=== PATIENT | male | born 1935 | race Caucasian/White ===

== ENCOUNTER 2024-01-28 07:01 | Inpatient (IN) | payer OTHER ==
[~2024-01-28] VITALS: Ht 170.2 cm; Wt 64.1 kg
[2024-01-28] VITALS (33 sets, daily range): BP systolic 71–127; BP diastolic 45–93
[2024-01-28] MEDS ORDERED: ACETAMINOPHEN 500 MG TAB PO ONE (07:15)
[2024-01-28] MEDS ORDERED: CEFTRIAXONE/SODIUM CHLORIDE 2 GM/100 ML PIGGYBACK IV ONE (07:15)
[2024-01-28] MEDS ORDERED: SODIUM CHLORIDE 0.9% 1,000 ML IV PRN ×3 (07:15→10:00)
[2024-01-28 07:26] LABS: BASOPHILS 0.5 % (0-2); EOSINOPHILS 0.6 % (0-6); HEMATOCRIT 40.1 % (35.0-50.0); HEMOGLOBIN 13.5 g/dL (12.0-18.0); LYMPHOCYTES 6.3 % (24-44); MCH 32.1 (27-36); MCHC 33.7 g/dl (30-36); MCV 95.3 fl (81-99); MONOCYTES 0.7 % (0-12); NEUTROPHILS 91.9 % (39-80); PLATELET COUNT 155 K/uL (140-440); RBC 4.21 M/ul (4.3-5.7); RDW 14.4 (10.5-15.0)
[2024-01-28 07:38] LABS: INR 1.7 (0.80-1.30); PROTIME 19.1 Sec (11.2-14.2)
[2024-01-28 07:42] LABS: ALBUMIN 3.1 g/dL (3.4-5.0); ALBUMIN/GLOBULIN RATIO 0.97 (1.1-2.4); ANION GAP 17.8 (7-21); BILIRUBIN, TOTAL 1.1 ng/dL (0.2-1.0); BUN/CREATININE RATIO 11.53 (6.0-28.6); CALCIUM 8.6 mg/dL (8.5-10.1); CREATININE, SERUM 1.56 mg/dL (0.70-1.30); POTASSIUM 3.8 mmol/L (3.5-5.1); PROTEIN, TOTAL 6.3 g/dL (6.4-8.2)
[2024-01-28 07:48] LABS: LACTIC ACID, BLOOD 3.9 mmol/L (0.4-2.0)
[2024-01-28 08:02] LABS: INFLUENZA B NAA NEGATIVE (NEGATIVE); RESPIRATORY SYNCYTIAL VIR NAA NEGATIVE (NEGATIVE)
[2024-01-28 08:26] LABS: BILIRUBIN, URINE NEGATIVE (negative); BLOOD/HGB, URINE NEGATIVE (Negative); KETONE, URINE NEGATIVE (Negative); LEUK ESTERASE, URINE NEGATIVE (negative); NITRITE, URINE NEGATIVE (negative)
[2024-01-28] MEDS ORDERED: ALBUTEROL/IPRATROPIUM 3 ML NEB INH ONE (08:45)
[2024-01-28] MEDS ORDERED: methylPREDNISolone SOD SUCC 125 MG/2 ML VIAL IV ONE (08:45)
[2024-01-28 09:51] LABS: LACTIC ACID, BLOOD 2.8 mmol/L (0.4-2.0)
[2024-01-28] MEDS ORDERED: SPIRIVA RESPIMAT4 GM INH (10:55)
[2024-01-28] MEDS ORDERED: WIXELA 250-501 EACH INH (10:55)
--- NOTE | 2024-01-28 11:10 | NUR ---
PATIENT ARRIVED TO UNIT VIA STRETCHER. REPORT RECEIVED FROM ED RN. PATIENT ABLE TRANSFER TO THE UNIT BED BY SCOOTING SELF. TOLLERATED WELL. ALERT AND ORIENTED TO PERSON, PLACE, TIME AND LOCATION. POSITIVE PERRLA TO BILATERAL EYES. HEART RATE NOTED TO BE IRREGULAR. LUNGS CTA IN UPPER LOBES LOWER LOBES DIMINISHED. BOWEL TONES ACTIVE X 4 QUADRANTS. ABD SOFT NON TENDER. DENIES ANY PAIN OR DISCOMFORT. NOTED BRUISE TO RIGHT PECTORAL AREA ON CHEST AND RIGHT LATERAL SIDE RIB AREA. MD IN ROOM TO ASSESS PATIENT.
[2024-01-28] MEDS ORDERED: ACETAMINOPHEN 325 MG TAB PO PRN (11:15)
[2024-01-28] MEDS ORDERED: ondansetron HCL 4 MG/2 ML VIAL IV PRN (11:15)
--- NOTE | 2024-01-28 11:45 | NUR ---
NOTED BP'S LOW, MD IN ROOM WITH PATIENT. MD GAVE VERBAL ORDER FOR 1L BOLUS OF LR.
[2024-01-28] MEDS ORDERED: POTASSIUM GLUCO99 MG PO (11:56)
[2024-01-28] MEDS ORDERED: VITAMIN B-122500 MCG PO (11:56)
[2024-01-28] MEDS ORDERED: FOLIC ACID0.8 MG PO (11:58)
[2024-01-28] MEDS ORDERED: FISH OIL 500 M1 EAC4 PO (11:58)
[2024-01-28] MEDS ORDERED: ADULT LOW DOSE81 MG PO (11:59)
[2024-01-28] MEDS ORDERED: B COMPLEX1 EACH PO (11:59)
[2024-01-28] MEDS ORDERED: LACTATED RINGER'S 1,000 ML IV ONE (12:00)
[2024-01-28] MEDS ORDERED: PHARMACY RENAL DOSE ADJUSTMENT 1 DOSE MISC PO SCH (12:00)
--- NOTE | 2024-01-28 12:00 | NUR ---
PATIENT TRANSFERED DOWN TO CT WITH RN.
[2024-01-28] MEDS ORDERED: SV GLUCOSAMINE PO (12:03)
[2024-01-28] MEDS ORDERED: CALCIUM 600 MG1 EA10 PO (12:04)
[2024-01-28] MEDS ORDERED: GLUCOSAMINE1000 MG PO (12:09)
[2024-01-28] MEDS ORDERED: VITAMIN C1000 MG PO (12:10)
[2024-01-28] MEDS ORDERED: NOREPINEPHRINE BITARTRATE 250 ML IV SCH (12:30)
--- NOTE | 2024-01-28 12:38 | NUR ---
BP'S REMAIN SOFT PATIENT STARTED ON LEVO GTT WITH TITRATION.
[2024-01-28] MEDS ORDERED: ALBUTEROL SULFATE 0.083% 3 ML VIAL INH PRN ×2 (13:00→22:45)
--- NOTE | 2024-01-28 13:00 | NUR ---
LEVO GTT CONTINUES PATIENT REMAINS ALERT AND ORIENTED X4. NOTIFIED OF NEW LAB RESULTS. MD DISCUSSING POC WITH PATIENT AND . PATIENT HR REMAINS IN THE 60'S. DENIES ANY SOB OR CHEST PAIN. PATIENT REMAINS ON OXYGEN 2L/MIN [facility]IA [facility]. [facility].
[2024-01-28] MEDS ORDERED: PIPERACILLIN/TAZOBACTAM 3.375 GM in DEXTROSE 5% 100 ML IV SCH (13:15)
[2024-01-28 13:29] LABS: HEMATOCRIT 33.8 % (35.0-50.0); HEMOGLOBIN 11.2 g/dL (12.0-18.0); MCH 31.9 (27-36); MCHC 33.2 g/dl (30-36); PLATELET COUNT 134 K/uL (140-440); RBC 3.53 M/ul (4.3-5.7); RDW 14.7 (10.5-15.0)
[2024-01-28 13:33] LABS: ANION GAP 16.1 (7-21); BUN/CREATININE RATIO 11.33 (6.0-28.6); CALCIUM 7.1 mg/dL (8.5-10.1); CREATININE, SERUM 1.5 mg/dL (0.70-1.30); POTASSIUM 4.1 mmol/L (3.5-5.1)
[2024-01-28 13:47] LABS: BANDS, MANUAL DIFF 4; LYMPHOCYTES, MANUAL DIFF 2; NEUTROPHILS, MANUAL DIFF 94
--- NOTE | 2024-01-28 13:47 | NUR ---
SCHEDSUDHAKARD NAE STOKES.
[2024-01-28] MEDS ORDERED: ALBUTEROL/IPRATROPIUM 3 ML NEB INH SCH (14:00)
--- NOTE | 2024-01-28 14:24 | NUR ---
MD SANDS IN ROOM AT THIS TIME. CENTRAL LINE INSERTION COMPLETED. ART LINE INSERTION COMPLETED.
[2024-01-28] MEDS ORDERED: Calcium Gluconate in NS 1,000 MG/50 ML BAG IV ONE (15:00)
[2024-01-28] MEDS ORDERED: FUROSEMIDE 40 MG/4 ML VIAL IV ONE ×2 (15:00→20:00)
--- NOTE | 2024-01-28 15:30 | NUR ---
PATIENT IN BED WITH FAMILY AT BEDSIDE. URING URINAL WHILE IN BED WITH NO ISSUES OR CONCERNS. ABLE TO USE CALL LIGHT APPROPIATLY WHEN NEEDING ASSISTANCE WITH URINAL. ALL IV SITE REMAIN WNL. ART LINE FUNCTIONING WNL. CENTRAL LINE WITH CONTINIOUS USE AT THIS TIME. NO FURTHER NEEDS CALL LIGHT WITHIN REACH.
--- NOTE | 2024-01-28 16:00 | NUR ---
ECHO BEING DONE AT HIS TIME.
--- NOTE | 2024-01-28 16:50 | NUR ---
ART LINE ZERO'D. ASSESSMENT COMPLETE. A/O X 4. HEART SOUNDS REMAIN IRREGULAR.M RYTHUM CONTINUES TO GO IN AND OF OF AFIB AND SINUS ABELARDO. LUNGS CTA THROUGHOUT WITH DIMINISHED BASES. PATIENT REMAIN ON OXYGEN 2L VIA NC TO MAINTAIN SAO2 WNL. DENIES ANY CHEST PAIN OR SOB. LEVO GTT CONTINUES TO MAINTAIN BP WNL. ABD SOFT NON TENDER, BOWEL TONES ACTIVE X 4 QUADRANTS. NOTED BRUISING TO RIGHT PECTORAL AND RIGHT LATERAL RIB REGION. URINAL EMPTIED. DENIES ANY FURTHER NEEDS AT THIS TIME. CALL LIGHT WITHIN REACH. AT BEDSIDE.
--- NOTE | 2024-01-28 17:48 | NUR ---
IV ALARMING. ABX COMPLETED. URINAL EMPTIED. DINNER SET UP FOR PATIENT.
--- NOTE | 2024-01-28 19:49 | EKG ---
[facility] [address] [facility] [place] [address] Signed Sinus tachycardia with 1st degree AV block Right bundle branch block Abnormal ECG No previous ECGs available Confirmed by Wandy Cool MD ([id number]) on 01/28/2024 7:48:50 PM Electronically Signed By: WANDY COOL MD 01/28/241948 PATIENT NAME: BERNABE BUSCH Electrocardiogram DATE OF : 39 PHYSICIAN: WANDY COOL MD REPORT #: [id number] REPORT IS CONFIDENTIAL AND NOT TO BE RELEASED WITHOUT AUTHORIZATION
--- NOTE | 2024-01-28 19:55 | NUR ---
PATIENT RESTING IN BED, ALERT AND ORIENTED, HIS SPOUSE SHRUTHI IS AT BEDSIDE. R.T. ALSO IN ROOM FOR TREATMENTS, ROOM AIR TRIAL AT THIS TIME BY Jazmin ROBIN. EDUCATION PROVIDED IN REGARDS TO MEDICATIONS, LASIX, PLAN OF CARE FOR THIS SHIFT, ASSESSMENT COMPLETE. PATIENT IS AFEBRILE.
[2024-01-28] MEDS ORDERED: BUDESONIDE 0.5 MG/2 ML VIAL INH SCH (20:00)
--- NOTE | 2024-01-28 22:35 | NUR ---
PATIENT ASSISTED TO TURN TO SIDE FOR SLEEP, HE WAS ADMINISTERED TYLENOL PRN FOR 2/10 BACK ACHE. SPOUSE YAEL AT BEDSIDE.
[2024-01-29] VITALS (12 sets, daily range): BP systolic 90–99; BP diastolic 44–75
--- NOTE | 2024-01-29 01:20 | NUR ---
CALLED R.T. FOR STAT EKG, FOR SIGNIFICANT RHYTHM CHANGE ON TELEMETRY. ALSO ST ELEVATION, CALLED TO REPORT FINDINGS, HE ASKED TO HAVE EKG SENT TO HOSPITALIST PHONE, LITO SALGADO BRAND DIRECTOR USED BRAND DIRECTOR PHONE TO TEXT IMAGE TO .
--- NOTE | 2024-01-29 03:47 | NUR ---
PATIENT CALLED NURSES STATION, HE SAID, "ITS 334 AND I HAVENT BEEN ABLE TO SLEEP." THIS RN SAID, "I KNOW IT HAS BEEN A LONG COUPLE OF DAYS, YOU DID TRY TO SLEEP A COUPLE OF TIMES." HE SAID, "YEAH, BUT NOT VERY MUCH." PATIENT THEN SAID, "I AM USUALLY A VERY ACTIVE LORENZO, I WOULD LIKE TO GET OUT OF THIS BED." THIS RN SAID, "AFTER LABS IF YOU FEEL UP TO IT WE CAN TRY TO GET YOU UP TO THE RECLINER IF YOUR BLOOD PRESSURE TOLERATES THE ACTIVITY." HE SAID, "THAT WOULD BE GREAT." NO OTHER CONCERNS AT THIS TIME.
[2024-01-29 05:09] LABS: HEMATOCRIT 36.7 % (35.0-50.0); HEMOGLOBIN 12.1 g/dL (12.0-18.0); MCH 31.5 (27-36); MCV 95.6 fl (81-99); PLATELET COUNT 128 K/uL (140-440); RBC 3.84 M/ul (4.3-5.7); RDW 14.8 (10.5-15.0)
[2024-01-29 05:29] LABS: ALBUMIN 2.6 g/dL (3.4-5.0); ALBUMIN/GLOBULIN RATIO 0.84 (1.1-2.4); ANION GAP 15.7 (7-21); BILIRUBIN, TOTAL 0.5 ng/dL (0.2-1.0); BUN/CREATININE RATIO 12.3 (6.0-28.6); CALCIUM 7.9 mg/dL (8.5-10.1); CREATININE, SERUM 1.95 mg/dL (0.70-1.30); MAGNESIUM 1.5 mg/dL (1.8-2.4); POTASSIUM 3.7 mmol/L (3.5-5.1); PROTEIN, TOTAL 5.7 g/dL (6.4-8.2)
--- NOTE | 2024-01-29 05:32 | NUR ---
PATIENT UP TO RECLINER WITH TWO STAFF ASSISTED, HE REPORTS MILD DIZZINESS WITH STANDING, STEADY AND STRONG TO STAND AND TRANSFER TO RECLINER, PATIENT REPORTS HE IS VERY HAPPY TO BE OUT OF BED. ALL LINES MANAGED WHILE TRANSFERING, NO PULLING OCCURRED.
[2024-01-29 05:35] LABS: BANDS, MANUAL DIFF 13; LYMPHOCYTES, MANUAL DIFF 2; MONOCYTES, MANUAL DIFF 4; NEUTROPHILS, MANUAL DIFF 79
--- NOTE | 2024-01-29 05:49 | NUR ---
CALLED TO REPORT CRITICAL LABS OF TROPONIN AND LACTIC FROM THIS AM DRAW, ALSO UPDATED ON ALL OTHER ABNORMAL LABS, NEW ORDER FOR MAGNESIUM 4G TOTAL.
[2024-01-29] MEDS ORDERED: MAGNESIUM SULFATE 2 GM/50 ML BAG IV SCH (06:00)
[2024-01-29] MEDS ORDERED: OXYCODONE HCL 5 MG TAB PO PRN (06:30)
--- NOTE | 2024-01-29 06:38 | NUR ---
PATIENT REPORTS CONTINUED BACK PAIN CONSTANT ANNOYING, TYLENOL WAS NOT EFFECTIVE OVER NIGHT, AND WITH LIVER ENZYMES ELEVATED THIS AM HELD TYLENOL AND CALLED FOR FURTHER ORDERS. GAVE NEW ORDER FOR OXYCODONE. ADMINISTERED TO PATIENT AT THIS TIME WITH VANILLA PUDDING. COFFEE PROVIDED TO PATIENT AND SPOUSE YAEL.
[2024-01-29 07:10] LABS: INR 1.66 (0.80-1.30); PROTIME 18.7 Sec (11.2-14.2)
--- NOTE | 2024-01-29 07:30 | NUR ---
Report received from Cindy SALGADO. Patient sitting up to chair. In room with Dr Cool to round with patient for plan for day. at bedside, engaged in care and attentive to patient.
[2024-01-29] MEDS ORDERED: HYDROCORTISONE SOD SUCCINATE 100 MG/2 ML VIAL IV SCH (07:45)
--- NOTE | 2024-01-29 08:00 | NUR ---
Assessment complete. Patient sitting up in chair A+O. Lungs clear over diminished in the bases. Heart murmur noted on exam. Arterial line zeroed and WNL. Triple lumen L subclavian access WNL. IV to R AC WNL. IV solucortef administered per order. Titration of levo gtt, see flowsheet.
[2024-01-29] MEDS ORDERED: LACTATED RINGER'S 1,000 ML IV ONE (09:00)
--- NOTE | 2024-01-29 09:48 | NUR ---
Patient ambulated with 2pa for line and tube management to BR for large BM and unmeasured void. Levo gtt titrated further, see flowsheet. Patient VSS at this time.
--- NOTE | 2024-01-29 11:35 | EKG ---
[facility] [address] [facility] [place] [address] Signed Junctional rhythm Right bundle branch block Abnormal ECG When compared with ECG of 28-JAN-2024 07:18, (Unconfirmed) Junctional rhythm has replaced Sinus tachycardia Confirmed by Wandy Cool MD ([id number]) on 01/29/2024 11:35:37 AM Electronically Signed By: WANDY COOL MD 01/29/24 1135 PATIENT NAME: BERNABE BUSCH Electrocardiogram DATE OF : 39 PHYSICIAN: WANDY COOL MD REPORT #: [id number] REPORT IS CONFIDENTIAL AND NOT TO BE RELEASED WITHOUT AUTHORIZATION
--- NOTE | 2024-01-29 11:39 | EKG ---
[facility] [address] [facility] [place] [address] Signed Sinus rhythm with marked sinus arrhythmia with 1st degree AV block Right bundle branch block T wave abnormality, consider inferior ischemia Abnormal ECG When compared with ECG of 28-JAN-2024 11:31, (Unconfirmed) Sinus rhythm has replaced Junctional rhythm Confirmed by Wandy Cool MD ([id number]) on 01/29/2024 11:39:41 AM Electronically Signed By: WANDY COOL MD 01/29/24 1139 PATIENT NAME: BERNABE BUSCH Electrocardiogram DATE OF : 39 PHYSICIAN: WANDY COOL MD REPORT #: [id number] REPORT IS CONFIDENTIAL AND NOT TO BE RELEASED WITHOUT AUTHORIZATION
--- NOTE | 2024-01-30 01:10 | NUR ---
LAB CALLED WITH POSITIVE BLOOD CULTURE RESULTS, THIS RN CALLED KRISTAL BUSH FOR FAX NUMBER TO SEND, SPOKE WITH DENA SALGADO IN CCU. FAXED BLOOD CULTURE RESULTS.
--- NOTE | 2024-01-30 18:17 | CONS ---
[facility] [address] [place], [place] [address] Signed DATE OF CONSULTATION: REQUESTING PHYSICIAN: Dr. Cool. ISSUE: Need for central venous access and arterial blood pressure catheter, presumed right lower lobe pneumonia/sepsis versus congestive heart failure. HISTORY OF PRESENT ILLNESS: This 88-year-old white man is usually in vigorous health. He presented to emergency room having fallen in the cigarette catcher hours today. He presented to the emergency room with subjective sense of fever, generalized weakness and generalized body pain, considered to be aching 10/10. He was transported by emergency medical services to the emergency room where he was noted to have a pulse oximeter reading of 89%. He had normal peripheral perfusion clinically. Neurologic exam was essentially normal. The patient usually is in vigorous health doing squats and muscle exercise and so forth on a routine basis. His presenting evaluation showed him to have a white count of 3.0 with hematocrit of 40.1, and platelets counts of 155,000. He did undergo a chest x-ray which was considered negative. He was admitted by Dr. Cool for further evaluation and a CT scan of the chest was obtained and concern for pulmonary embolism, particularly given episodic atrial fibrillation. A CT scan of the chest did not show pulmonary embolism but did show an infiltrate in the right lower lobe. The spleen was noted to be normal and was seen on those images. EKG did show a tachycardic rate of 110 with a right bundle branch block, but with episodic atrial fibrillation as well. I was asked to see the patient on the basis of need for central venous access as well as arterial blood pressure monitor placement (A-line) as the patient was requiring pressor support to maintain systolic blood pressure despite not being tachycardic. The working diagnosis of sepsis related to right lower lobe pneumonia is current working diagnosis. PHYSICAL EXAMINATION: GENERAL: He is alert and oriented. Shows no sign of delirium. He does not look diaphoretic in any way. VITAL SIGNS: His pulse was 77, variably to 100 with episodic atrial fibrillation. Blood pressure 88/40 with inotropic support. Trachea is midline. NECK: Has poor ability for extension. He has mild jugular venous distention. CHEST: Shows normal respiratory excursion without respiratory distress. ABDOMEN: Soft and nontender. He has an ecchymosis near his right areolar complex related to a fall from this morning apparently. EXTREMITIES: Lower extremities show chronic venous stasis disease, but no sign of tenderness or swelling. He has no evidence clinically of DVT or cellulitis. Electronically Signed By: AVELINA SANDS MD 01/30/24 1817 PATIENT NAME: BERNABE BUSCH CONSULTATION DATE OF : 39 REPORT #: [id number] PHYSICIAN: AVELINA SANDS MD PCP: KATTY BELTRE MD REPORT IS CONFIDENTIAL AND NOT TO BE RELEASED WITHOUT AUTHORIZATION [facility] [address] [place] [id number] Signed LABORATORY DATA: Lab study #2 showed a white count now elevated to 13.0, hematocrit 33.8, platelets 134,000. Chem profile was essentially normal. Creatinine is 1.50, glucose 136. Lactic acid at 1232 hours was 3.3. BNP was 1557, upper limit normal 450. Urinalysis was essentially normal. Serology was negative for viral pathogens and coronavirus. Imaging studies were reviewed including chest x-ray, abdomen, pelvis and chest CT scans. There was considered to be dependent bibasilar atelectasis or consolidation with areas of mucous plugging, mild interlobular septal thickening and periportal edema. A small amount of pericholecystic fluid. ASSESSMENT: The patient has possible infectious source of his hypotension. He is not tachycardic, does not look systemically toxic at this time, though he does require Levophed for pressure support at this time. A central venous line has been recommended. I did recommend a subclavian approach as he is unable to rotate his neck well and is unable to extend his neck to allow for a judicious right internal jugular cannulation. Additionally, an arterial blood pressure catheter is recommended and I would recommend a left arterial blood pressure line. He shows no cause for his underlying hemodynamic compromise at this time. Continued monitoring in intensive care is certainly advisable at this time. I discussed with the patient the risk of arterial blood pressure catheter placement as well as central venous catheterization, which include but is not limited to bleeding, infection, and other unforeseen complications. He understands and wished to proceed. MD YUE Barbosa/VIVEKL /[id number] cc: Dr. Cool Electronically Signed By: AVELINA SADNS MD 01/30/24 1817 PATIENT NAME: BERNABE BUSCH CONSULTATION DATE OF : 39 REPORT #: [id number] PHYSICIAN: AVELINA SANDS MD PCP: KATTY BELTRE MD REPORT IS CONFIDENTIAL AND NOT TO BE RELEASED WITHOUT AUTHORIZATION [facility] [address] [facility] [place], [place] [address] Signed Copies: ~ Electronically Signed By: AVELINA SANDS MD 01/30/24 1817 PATIENT NAME: BERNABE BUSCH CONSULTATION DATE OF : 39 REPORT #: [id number] PHYSICIAN: AVELINA SANDS MD PCP: KATTY BELTRE MD REPORT IS CONFIDENTIAL AND NOT TO BE RELEASED WITHOUT AUTHORIZATION
--- NOTE | 2024-01-30 18:17 | OR ---
[facility] [address] [place], [place] [address] Signed DATE OF OPERATION: 01/28/2024 SURGEON: Avelina Sands MD PREOPERATIVE DIAGNOSES: Hypotension required pressor support, need for central venous access and arterial blood pressure monitoring. POSTOPERATIVE DIAGNOSES: Hypotension required pressor support, need for central venous access and arterial blood pressure monitoring. PROCEDURES: 1. Left subclavian Arrow triple-lumen catheter placement (PowerPort type). 2. Left radial arterial blood pressure line. ANESTHESIA: 1% lidocaine. DESCRIPTION OF PROCEDURE: In mild Trendelenburg position with the arms at the side the left infraclavicular space was prepared with a chlorhexidine solution and draped sterilely. With sterile mask, gloves, gowns, etc. the left infraclavicular space was infiltrated with local anesthetic. Using the Seldinger technique with the enclosed needle and syringe from the Bard triple-lumen catheter kit, the left subclavian vein was easily accessed showing dark nonpulsatile blood. A flexible J-wire was passed down the needle, needle was removed. He had no excessive ectopy. Site was incised with an 11 blade and dilated with enclosed blue dilator and a previously inspected and irrigated Arrow triple-lumen PowerPort catheter was passed over the wire without problem. The wire was removed. Aspiration on the distal port showed dark nonpulsatile blood. The site was flushed with sterile saline. This secured the skin within close collar device and enclosed suture. Sterile clear dressing was applied. He tolerated the procedure well. With a completely different setup, the left wrist was placed in extended position with a towel and Soto stand. The area was prepared with a chlorhexidine solution and draped sterilely with towels. Using a Jelco 19-gauge angiocatheter the left radial artery was easily accessed showing bright pulsatile blood. Catheter secured the skin within and closed with 3-0 nylon suture and attached to the arterial blood pressure monitor catheter. It appeared to have a good waveform. In the standard way a wrist splint was placed in extension and secured well. Electronically Signed By: AVELINA SANDS MD 01/30/24 1817 PATIENT NAME: BERNABE BUSCH OPERATIVE REPORT DATE OF : 39 REPORT #: [id number] PHYSICIAN: AVELINA SANDS MD PCP: KATTY BELTRE MD REPORT IS CONFIDENTIAL AND NOT TO BE RELEASED WITHOUT AUTHORIZATION [address] [address] Signed A postprocedure chest x-ray was performed which showed optimal placement of the tip of the left subclavian catheter. He tolerated both procedures well. MD YUE Barbosa/CHRISTIN /[id number] cc: Dr. Cool Copies: ~ Electronically Signed By: AVELINA SANDS MD 01/30/24 1817 PATIENT NAME: BERNABE BUSCH OPERATIVE REPORT DATE OF : 39 REPORT #: [id number] PHYSICIAN: AVELINA SANDS MD PCP: KATTY BELTRE MD REPORT IS CONFIDENTIAL AND NOT TO BE RELEASED WITHOUT AUTHORIZATION
== END 2024-01-29 11:20 | disposition short-term general hospital (02) | DRG 871 ==
LOC: ED 07:01 → CCU 10:50
PROVIDERS: Emergency Medicine; ADMIT Student in an Organized Health Care Education/Training Program; ATTEND Student in an Organized Health Care Education/Training Program
PROC: 02HV33Z Insertion of Infusion Device into Superior Vena Cava, Percutaneous Approach (ICD-10-PCS; principal; 2024-01-28)
PROC: 03HY32Z Insertion of Monitoring Device into Upper Artery, Percutaneous Approach (ICD-10-PCS; 2024-01-28)
PROC: 4A133B1 Monitoring of Arterial Pressure, Peripheral, Percutaneous Approach (ICD-10-PCS; 2024-01-28)
PROC: 4A133J1 Monitoring of Arterial Pulse, Peripheral, Percutaneous Approach (ICD-10-PCS; 2024-01-28)
PROC: 3E03329 Introduction of Other Anti-infective into Peripheral Vein, Percutaneous Approach (ICD-10-PCS; 2024-01-28)
DX: A41.9 Sepsis, unspecified organism (principal); J18.9 Pneumonia, unspecified organism; R65.21 Severe sepsis with septic shock; R57.0 Cardiogenic shock; E87.20 Acidosis, unspecified; N17.9 Acute kidney failure, unspecified; I48.91 Unspecified atrial fibrillation; R74.01 Elevation of levels of liver transaminase levels; J45.909 Unspecified asthma, uncomplicated; S20.219A Contusion of unspecified front wall of thorax, initial encounter; S30.1XXA Contusion of abdominal wall, initial encounter; Z79.82 Long term (current) use of aspirin; Z79.899 Other long term (current) drug therapy; W19.XXXA Unspecified fall, initial encounter
CPT/HCPCS: 36415; 36592; 51701; 51798; 71045; 71260; 74177; 80048; 80053; 81003; 83605; 83735; 83880; 84484; 85025; 85610; 85730; 87040; 87502; 93005; 93010; 93306; 94640; 94667; 99285-25; A9270; J0696; J1720; J1940; J2543; J2919; J3475; J7030; J7121; Q9967; U0002

== ENCOUNTER 2024-03-03 07:26 | Observation (INO) | payer OTHER, MEDICARE ==
[2024-03-03] VITALS (15 sets, daily range): BP systolic 85–122; BP diastolic 51–83
[~2024-03-03] VITALS: Ht 170.2 cm; Wt 61.0 kg
--- OUTSIDE RECORDS SUMMARY | ~2024-03-03 | XMS | Continuity of Care Document ---
Demographics + + + | Address | [address] | | | [place] [address] | + + + | Preferred Language | Unknown | + + + | Marital Status | Unknown | + + + | Samaritan Affiliation | Unknown | + + + | Race | White | + + + | Ethnic Group | Unknown | + + + Author + + + | Author | [facility] | + + + | Organization | [facility] | + + + | Address | [address] | | | [place] [address] | + + + | Phone | | + + + Care Team Providers + + + + | Care Slate Picker Name | Role | Phone | + + + + Unavailable | Unavailable | + + + + Allergies No information. Encounters No information. Functional Status No information. Immunizations No information. Medications No information. Problems No information. Procedures No information. Results/Labs +--------+--------+ +---------+--------+---------+ | test | date | facility | value | unit | notes | +--------+--------+ +---------+--------+---------+ + + | Result panel 1 | + + + + + +-------+---------+ + | POC | 2024-01-29 | [facility] | 138 | mg/dl | Glu2: | | GLUCOSE.BLD. | 14:03 | [facility] | | | Notify MD / | | QN (MG/DL) | | Medical | | | RN | | | | Center | | | | + + + +-------+---------+ + + + | Result panel 2 | + + + + + + + + + | | 2024-01-29 | [facility] | (missing) | (missing) | Unable to | | MPV.BLD.QN.A | 14:05 | [facility] | | | report due | | [facility] [place] | | Medical | | | to abnormal | | | | Center | | | platelet | | | | | | | flags | + + + + + + + | EGFR | 2024-01-29 | [facility] | 0.5 | mg/dl | (missing) | | ML/MIN/1.73 | 14:05 | [facility] | | | | | SQ | | Medical | | | | | M.PREDICTED | | Center | | | | + + + + + + + | EGFR | 2024-01-29 | [facility] | 0.9 | (missing) | (missing) | | ML/MIN/1.73 | 14:05 | [facility] | | | | | SQ | | Medical | | | | | M.PREDICTED | | Center | | | | + + + + + + + | EGFR | 2024-01-29 | [facility] | 1.34 | mg/dl | (missing) | | ML/MIN/1.73 | 14:05 | [facility] | | | | | SQ | | Medical | | | | | M.PREDICTED | | Center | | | | + + + + + + + | EGFR | 2024-01-29 | [facility] | 10 | mmol/l | (missing) | | ML/MIN/1.73 | 14:05 | [facility] | | | | | SQ | | Medical | | | | | M.PREDICTED | | Center | | | | + + + + + + + | EGFR | 2024-01-29 | [facility] | 107 | mmol/l | (missing) | | ML/MIN/1.73 | 14:05 | [facility] | | | | | SQ | | Medical | | | | | M.PREDICTED | | Center | | | | + + + + + + + | | 2024-01-29 | [facility] | 112 | k/ul | (missing) | | MPV.BLD.QN.A | 14:05 | [facility] | | | | | [facility] [place] | | Medical | | | | | | | Center | | | | + + + + + + + | | 2024-01-29 | [facility] | 12.0 | g/dl | (missing) | | MPV.BLD.QN.A | 14:05 | [facility] | | | | | [facility] [place] | | Medical | | | | | | | Center | | | | + + + + + + + | EGFR | 2024-01-29 | [facility] | 139 | mg/dl | | | ML/MIN/1.73 | 14:05 | [facility] | | | | | SQ | | Medical | | | | | M.PREDICTED | | Center | | | | + + + + + + + Social History +--------+ + + | date | description | facility | +--------+ + + Vital Signs No information."
--- OUTSIDE RECORDS SUMMARY | ~2024-03-03 | XMS | Continuity of Care Document ---
Demographics + + + | Address | [facility] [address] [address] | | | [place] [address] | + + + | Preferred Language | Unknown | + + + | Marital Status | Unknown | + + + | Oriental Orthodox Affiliation | Unknown | + + + | Race | White | + + + | Ethnic Group | Unknown | + + + Author + + + | Author | [facility] | + + + | Organization | [facility] | + + + | Address | [address] | | | [place] [address] | + + + | Phone | | + + + Care Team Providers + + + + | Care Safety Director Name | Role | Phone | + [...] +-------+---------+ + | POC | 2024-01-29 | [facility] | 138 | mg/dl | Glu2: | | [email or web address]. | 14:03 | [place] | | | Notify MD / | | QN (MG/DL) | | Medical | | | RN | | | | Center | | | | + + + +-------+---------+ + + + | Result panel 2 | + + + + + + + + + | | 2024-01-29 | [facility] | (missing) | (missing) | Unable to | | MPV.BLD.QN.A | 14:05 | [place] | | | report due | | [facility] [place] | | [facility] | | | to abnormal | | | | Center | | | platelet | | | | | | | flags | + + + + + + + | EGFR | 2024-01-29 | [facility] | 0.5 | mg/dl | (missing) | | ML/MIN/1.73 | 14:05 | [place] | | | | | SQ | | Medical | | | | | M.PREDICTED | | Center | | | | + + + + + + + | EGFR | 2024-01-29 | [facility] | 0.9 | (missing) | (missing) | | ML/MIN/1.73 | 14:05 | [place] | | | | | SQ | | Medical | | | | | M.PREDICTED | | Center | | | | + + + + + + + | EGFR | 2024-01-29 | [facility] | 1.34 | mg/dl | (missing) | | ML/MIN/1.73 | 14:05 | [place] | | | | | SQ | | Medical | | | | | M.PREDICTED | | Center | | | | + + + + + + + | EGFR | 2024-01-29 | [facility] | 10 | mmol/l | (missing) | | ML/MIN/1.73 | 14:05 | [place] | | | | | SQ | | Medical | | | | | M.PREDICTED | | Center | | | | + + + + + + + | EGFR | 2024-01-29 | [facility] | 107 | mmol/l | (missing) | | ML/MIN/1.73 | 14:05 | [place] | | | | | SQ | | Medical | | | | | M.PREDICTED | | Center | | | | + + + + + + + | | 2024-01-29 | [facility] | 112 | k/ul | (missing) | | MPV.BLD.QN.A | 14:05 | [place] | | | | | [facility] | | Medical | | | | | | | Center | | | | + + + + + + + | | 2024-01-29 | [facility] | 12.0 | g/dl | (missing) | | MPV.BLD.QN.A | 14:05 | [place] | | | | | [facility] | | [facility] | | | | | | | Center | | | | + + + + + + + | EGFR | 2024-01-29 | [facility] | 139 | mg/dl | | | ML/MIN/1.73 | 14:05 | [place] | | | | | SQ | | Medical | | | | | M.PREDICTED | | Center | | | | + + + + + + + Social History +--------+ + + | date | description | facility | +--------+ + + Vital Signs No information."
[~2024-03-03 07:26] MED LIST: ADULT LOW DOSE81 MG PO; B COMPLEX1 EACH PO; CALCIUM 600 MG1 EA10 PO; FISH OIL 500 M1 EAC4 PO; FOLIC ACID0.8 MG PO; GLUCOSAMINE1000 MG PO; POTASSIUM GLUCO99 MG PO; SPIRIVA RESPIMAT4 GM INH; SV GLUCOSAMINE PO; VITAMIN B-122500 MCG PO; VITAMIN C1000 MG PO; WIXELA 250-501 EACH INH
[2024-03-03] MEDS ORDERED: METOPROLOL TART25 MG PO (07:54)
[2024-03-03] MEDS ORDERED: ELIQUIS5 MG PO (07:54)
[2024-03-03 07:55] LABS: EOSINOPHILS 2.6 % (0-6); HEMATOCRIT 41.3 % (35.0-50.0); LYMPHOCYTES 29.1 % (24-44); MCH 32.7 (27-36); MCHC 33.9 g/dl (30-36); MCV 96.4 fl (81-99); MONOCYTES 11.4 % (0-12); NEUTROPHILS 55.9 % (39-80); PLATELET COUNT 198 K/uL (140-440); RBC 4.29 M/ul (4.3-5.7); RDW 15.2 (10.5-15.0)
[2024-03-03] MEDS ORDERED: FLOMAX0.4 MG PO (07:55)
[2024-03-03] MEDS ORDERED: GLUCAGON,HUMAN RECOMBINANT 1 MG/ML VIAL ONE (07:59)
[2024-03-03] MEDS ORDERED: GLUCAGON,HUMAN RECOMBINANT 1 MG/ML VIAL IV ONE ×2 (08:00→15:15)
[2024-03-03] MEDS ORDERED: ondansetron HCL 4 MG/2 ML VIAL IV ONE (08:00)
[2024-03-03] MEDS ORDERED: ATROPINE SULFATE 1 MG/10 ML SYR IV SCH (08:00)
[2024-03-03 08:04] LABS: INR 1.1 (0.80-1.30); PROTIME 14.2 Sec (11.2-14.2)
[2024-03-03] MEDS ORDERED: SODIUM CHLORIDE 0.9% 1,000 ML IV PRN (08:15)
[2024-03-03 08:19] LABS: ALBUMIN 3.4 g/dL (3.4-5.0); ALBUMIN/GLOBULIN RATIO 0.97 (1.1-2.4); ANION GAP 9.3 (7-21); BILIRUBIN, TOTAL 0.7 ng/dL (0.2-1.0); BUN/CREATININE RATIO 13.72 (6.0-28.6); CALCIUM 8.8 mg/dL (8.5-10.1); CREATININE, SERUM 1.02 mg/dL (0.70-1.30); POTASSIUM 4.3 mmol/L (3.5-5.1); PROTEIN, TOTAL 6.9 g/dL (6.4-8.2)
[2024-03-03 08:39] LABS: TSH, 3RD GENERATION 3.993 uIU/mL (0.358-3.740)
[2024-03-03] MEDS ORDERED: CALCIUM GLUCONATE 1,000 MG/10 ML VIAL IV ONE (10:00)
[2024-03-03] MEDS ORDERED: SODIUM CHLORIDE 0.9% 1,000 ML IV SCH (10:45)
[2024-03-03] MEDS ORDERED: ACETAMINOPHEN 325 MG TAB PO PRN (10:45)
[2024-03-03] MEDS ORDERED: ondansetron HCL 4 MG/2 ML VIAL IV PRN (10:45)
[2024-03-03 10:50] LABS: BILIRUBIN, URINE NEGATIVE (negative); BLOOD/HGB, URINE NEGATIVE (Negative); KETONE, URINE NEGATIVE (Negative); LEUK ESTERASE, URINE TRACE (negative); NITRITE, URINE NEGATIVE (negative); PH, URINE 6.5 (5-7)
[2024-03-03 10:56] LABS: EPITHELIAL CELLS, URINE TRANSITIONAL 1+ /lpf (0-1+); RED BLOOD CELLS, URINE 0-1 /hpf (0-5)
[2024-03-03 10:57] LABS: BACTERIA, URINE NONE SEEN /hpf (negative); CASTS, URINE NONE SEEN \\lpf; COLLECTION TYPE, URINE CLEAN CATCH; CRYSTALS, URINE NONE SEEN (0-1+); REFLEX CULTURE, URINE No (No)
[2024-03-03] MEDS ORDERED: PHARMACY RENAL DOSE ADJUSTMENT 1 DOSE MISC PO SCH (12:00)
[2024-03-03] MEDS ORDERED: ALBUTEROL/IPRATROPIUM 3 ML NEB INH SCH (14:00)
--- NOTE | 2024-03-03 14:00 | NUR ---
PATIENT IS RESTING. DENIES SHORTNESS OF BREATH, PAIN OR NAUSE. MONITOR SHOW SB WITH HR IN THE 50'S WITH 1 DEGREE AVB. NO PAUSE NOTED SINCE ADMIT TO CCU.
--- NOTE | 2024-03-03 15:20 | NUR ---
UPON ENTERING PATIENT ROOM, PATIENT IS SITTING UP IN CHAIR RECEIVING A NEB TREATMENT FROM RT. PATIENT SAID SHE WAS THE ONE WHO HELPED PATIENT TO THE CHAIR. AFTER NEB TX I TALKED WITH THE PATIENT AND ABOUT THE IMPORTANCE FOR USING THE CALL LIGHT FOR ASSIST. PRIOR TO ASSISTING THE PATIENT BACK TO BED, PAUSE NOTED ON FOOD AND BEVERAGE DIRECTOR. PATIENT TRANSFERRED TO BED W/O INCIDENT. EDUCATION GIVEN TO PATIENT AND ABOUT THE PAUSES IN HEART RHYTHM. DR. BARBOUR IN ROOM.
--- NOTE | 2024-03-03 16:16 | NUR ---
PT HAS BEEN HAVING MORE AND MORE PAUSES OVER THE LAST HOUR. DR BARBOUR ON UNIT AND AWARE, EKG ORDERED. PT CONT TO BE ASSYMPTOMATIC WITH THESE PAUSES, REPORTS HE DOES NOT FEEL THEM HAPPENING. PT GOT UP TO VOID PRIOR TO EKG, HR WENT UP TO 70'S.
[2024-03-03] MEDS ORDERED: BUDESONIDE 0.5 MG/2 ML VIAL INH SCH (20:00)
[2024-03-03] MEDS ORDERED: ATROPINE SULFATE 1 MG/10 ML SYR IV ONE (20:15)
--- NOTE | 2024-03-03 20:19 | NUR ---
PATIENT CONTINUES TO HAVE >4 SECOND PAUSES. MD AT BEDSIDE. 1 MG ATROPINE GIVEN AT THIS TIME. PATIENT IS AAOX4. REPORTS FEELING FLUSHED AND "GROSS" OCCATIONALLY WITH PAUSE. MAP > 65. BP SOFT. IV SITES WNL X2.
--- NOTE | 2024-03-03 20:30 | NUR ---
PATIENT AAOX4. HR 40-50; SINUSBRADY WITH OCCATIONAL PAUSES UP TO 4-5 SECONDS. PATIENT TOLERATING ROOM AIR. DENIED CHEST PAIN OR GI UPSET. IV SITES WNL X2. AT BEDSIDE.
[2024-03-03] MEDS ORDERED: APIXABAN 5 MG TAB PO SCH (21:00)
--- NOTE | 2024-03-03 21:00 | NUR ---
NASAL SWAB DONE PER ORDER, PATIENT TOLERATED WELL. ORAL SWABS GIVEN FOR COMFORT. PATIENT NPO AT THIS TIME.
[2024-03-03 21:32] LABS: INFLUENZA B NAA NEGATIVE (NEGATIVE); RESPIRATORY SYNCYTIAL VIR NAA NEGATIVE (NEGATIVE)
--- NOTE | 2024-03-03 22:48 | NUR ---
PATIENT ATTEMPTED TO STAND AT BEDSIDE TO VOID. PATIENT UNABLE TO VOID AT THIS TIME. BACK TO BED. TOLERATED ACTIVITY. PATIENT AND UPDATED ON PLAN FOR TRANSFER. NO QUESTIONS AT THIS TIME.
--- NOTE | 2024-03-03 22:50 | EKG ---
[facility] [address] [facility] [place] [address] Signed Sinus bradycardia with 1st degree AV block Nonspecific intraventricular block Abnormal ECG When compared with ECG of 29-JAN-2024 01:28, Nonspecific intraventricular block has replaced Right bundle branch block Confirmed by Karolina Barbour MD () on 03/03/2024 10:50:25 PM Electronically Signed By: KAROLINA BARBOUR MD 03/03/24 2250 PATIENT NAME: BERNABE BUSCH Electrocardiogram DATE OF : 39 PHYSICIAN: KAROLINA BARBOUR MD REPORT #: [id number] REPORT IS CONFIDENTIAL AND NOT TO BE RELEASED WITHOUT AUTHORIZATION
--- NOTE | 2024-03-03 22:53 | EKG ---
[facility] [address] [facility] [place] [address] Signed Sinus bradycardia with marked sinus arrhythmia with 1st degree AV block Nonspecific intraventricular block Abnormal ECG When compared with ECG of 03-MAR-2024 08:01, QT has shortened Confirmed by Karolina Barbour MD () on 03/03/2024 10:53:36 PM Electronically Signed By: KAROLINA BARBOUR MD 03/03/24 2253 PATIENT NAME: BERNABE BUSCH Electrocardiogram DATE OF : 39 PHYSICIAN: KAROLINA BARBOUR MD REPORT #: [id number] REPORT IS CONFIDENTIAL AND NOT TO BE RELEASED WITHOUT AUTHORIZATION
--- NOTE | 2024-03-03 23:26 | NUR ---
PATIENT LEFT WITH LIFE FLIGHT CREW FOR TRANSFER. PATIENT TOOK A [employer] BAG WITH HIS CELL PHONE, SERVICE CREW SUPERVISOR, AND A BOOK. PATIENT HAS HEARING AID IN RIGHT EAR UPON TRANSFER. IN ROOM; UPDATED ON PLAN FOR TRANSFER. WRITTEN INFORMATION PROVIDED FOR NEW FACILITY INFO AND PHONE NUMBER. PATIENT VS STABLE UPON TRANSFER.
--- NOTE | 2024-03-03 23:38 | NUR ---
REPORT CALLED; SEE TRANSFER PAPERWORK
--- NOTE | 2024-03-04 15:12 | EKG ---
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
== END 2024-03-03 23:38 | disposition short-term general hospital (02) ==
LOC: ED 07:26 → CCU 07:28
PROVIDERS: Emergency Medicine; ADMIT Family Medicine; ATTEND Family Medicine
DX: R00.1 Bradycardia, unspecified (principal); R55 Syncope and collapse; I48.91 Unspecified atrial fibrillation; I44.0 Atrioventricular block, first degree; J44.9 Chronic obstructive pulmonary disease, unspecified; N40.0 Benign prostatic hyperplasia without lower urinary tract symptoms; J45.909 Unspecified asthma, uncomplicated; Z79.82 Long term (current) use of aspirin; Z79.899 Other long term (current) drug therapy
CPT/HCPCS: 36415; 71045; 80053; 81001; 84443; 84484; 85025; 85610; 86922; 87502; 93005; 93010; 94640; 96376; G0378; J0461; J0612; J1610; J2405; J7030; U0002